=== PATIENT | male | born 1960 | race Caucasian/White ===

== ENCOUNTER 2018-03-14 16:05 | Emergency (ER) | payer SELFPAY ==
--- NOTE | 2018-03-14 17:37 | UC ---
Respiratory Complaint HPI - HPI Summary HPI Summary: Pt presents to with spouse. pt with 2 weeks of cough and wheezing. Pt [facility] eval [facility] - Rx z pack, prednison and tessalon pearls. pt states systomes mild improved. Pt continues to cough which is temporarily improved with Nyquil/Dayquil. Pt denies nausea, vomiting but states decreased appetite. Pt states with coughing has some wheeze and lungs feel tight. No sick contact. no chest pain pt's medications reviewed this visit - History of Current Complaint Chief Complaint: UCRespiratory Stated Complaint: COUGH, CHEST CONGESTION Time Seen by Provider: 03/14/18 16:57 Hx Obtained From: Patient Onset/Duration: Gradual Onset Pain Intensity: 0 - Allergies/Home Medications Allergies/Adverse Reactions: Allergies Allergy/AdvReac Type Severity Reaction Status Date / Time No Known Allergies Allergy Verified 03/14/18 16:24 Home Medications: Home Medications Omeprazole CAP* [Prilosec CAP* 20 MG] 40 mg PO DAILY 03/14/18 [History Confirmed 03/14/18] PMH/Surg Hx/FS Hx/Imm Hx Previously Healthy: Yes - Surgical History Surgical History: None - Family History Known Family History: Positive: Other - non contributory - Social History Occupation: Employed Full-time Lives: With Family Alcohol Use: Weekly Substance Use Type: None Smoking Status (MU): Never Smoked Tobacco Have You Smoked in the Last Year: No Review of Systems Constitutional: Negative Skin: Negative Respiratory: Cough Cardiovascular: Negative All Other Systems Reviewed And Are Negative: Yes Physical Exam - Summary Physical Exam Summary: Vital Signs Reviewed: Yes A+Ox3, no distress Eyes: Conjunctiva Clear, MICHAEL. EOM intact and full ENT: Hearing grossly normal TM x 2 clear, mmoist, uvula midline, no exudate, no erythema Neck: Positive: Supple Respiratory: Pt with persistent coarse cough, no sputum, No accessory muscle use + CTA throughout with scattered wheeze Cardiovascular: RRR nl s1, s2 no m/r CBT <2 sec abd soft + BS nt/nd no guarding, no distension Musculoskeletal Exam: PACKER x 4 without difficulty Strength Intact, ROM Intact Neurological: Positive: Alert, + sensation throughout Psychological: Positive: Normal Response To Family Skin: Positive: no rash, no ecchymosis Triage Information Reviewed: Yes Vital Signs: Initial Vital Signs Temp 98.5 F 03/14/18 16:19 Pulse 82 03/14/18 16:19 Resp 18 03/14/18 16:19 BP 143/85 03/14/18 16:19 Pulse Ox 96 03/14/18 16:19 Diagnostic Evaluation - Laboratory O2 Sat by Pulse Oximetry: 96 - Radiology Xray Interpretation: Positive (See Comments) - Patient Name: LUCRECIA CORADO Medical Record#: [id number] Radiology Interpretation Completed By: Radiologist Re-Evaluation - Re-Evaluation First Eval Change: Improved - Pt improved following neb less cough, wheezing improved reviewed CXR with pt nieto tart abx long taper pred return precuations pcp f/u secretion precaution Respiratory Course/Dx - Course Course Of Treatment: Pt presents with persistent cough for 2-3 weeks, Pt was treated with course of abx and pred with little relief. VSS. Pt with persistent cough and wheeze. Will check CXR. duoneb and reassess - Differential Dx/Diagnosis Provider Diagnoses: LLL Pna Discharge - Sign-Out/Discharge Documenting (check all that apply): Patient Departure All imaging exams completed and their final reports reviewed: Yes - Discharge Plan Condition: Stable Disposition: HOME Prescriptions: Albuterol HFA INHALER* [Ventolin HFA Inhaler*] 2 puff INH Q4H PRN #1 mdi PRN Reason: Cough DOXYcycline CAP(*) [DOXYcycline 100MG CAP(*)] 100 mg PO BID #20 cap Inhaler, Assist Devices [Aerochamber Mv] 1 each PO Q4HR #1 spacer predniSONE TAB* [Deltasone 20 MG TAB*] 20 mg PO DAILY #9 tab Patient Education Materials: Community Acquired Pneumonia (ED) Referrals: Silvestre Morataya MD [Primary Care Provider] - Additional Instructions: - Take antibiotics exactly as prescribed until gone - Use your albuterol puffer - 2 puffs ever 4 hours for the next 3 days - then as needed - Take prednisone as prescribed until gone - Stay well hydrated - avoid excess caffeine and all alcohol - Resume taking Zyrtec - It is recommended you take Robitussin - instead of Nyquil and Dayquil for you cough -- Eat regular, healthy meals -These infections are spread by oral secretions. Do not share eating or drinking utensils. Frequent hand washing is important. Clean items that may get your secretions on them such as cell phones, ipads, computer mouse, television remotes. Once you have been on antbiotics for 2 days, change your pillowcase and your toothbrush - Contact your doctor to arrange a follow-up appointment at the end of this upcoming week. Call your doctor, return here or go to the emergency department with any questions or concerns - Billing Disposition and Condition Condition: STABLE Disposition: Home
[2018-03-14] MEDS ORDERED: Albuterol/Ipratropium NEB.SOL* Albuterol 2.5 MG/Ipratropium 0.5 MG 3 ML INH ONE (17:44)
[2018-03-14] MEDS ORDERED: DOXYcycline CAP(*) 100 MG PO ONE (18:57)
[2018-03-14] MEDS ORDERED: Albuterol HFA INHALER* 8 gm MDI INH ONE (18:57)
[2018-03-14 18:58] VITALS: BP 139/81
[2018-03-14] MEDS ORDERED: predniSONE TAB* 20 MG PO ONE (18:59)
--- NOTE | 2018-03-15 07:45 | RAD ---
INDICATION: Persistent cough. Wheeze. Recent fever. COMPARISON: No relevant prior exams available on the [facility] PACS for comparison. TECHNIQUE: Dual energy PA and routine lateral views of the chest were obtained. REPORT: Very mild bibasilar alveolar consolidation without volume loss. Negative for pleural effusion or pneumothorax. The heart, pulmonary vasculature, and mediastinal contours are unremarkable. IMPRESSION: #. Very mild bibasilar alveolar opacities are suspicious for inflammatory infiltrates given absence of volume loss to favor atelectasis. R0
== END 2018-03-14 19:10 | disposition home or self-care (01) ==
LOC: UCEAST 16:05
DX: J18.9 Pneumonia, unspecified organism (principal)
CPT/HCPCS: 71046; 99213; A9270-GY; G0463; J7512